=== PATIENT | female | born 1985 | race Two or more races ===

== ENCOUNTER 2018-10-19 14:34 | Emergency (ER) | payer OTHER ==
[2018-10-19 14:53] VITALS: BP 119/88
--- NOTE | 2018-10-19 16:00 | ED Physician Documentation ---
PD HPI SKIN - Stated complaint Stated Complaint: RASH - Chief complaint Chief Complaint: Wound - History obtained from History obtained from: Patient - History of Present Illness Timing - onset: How many days ago (3 days itchy rash, started RUE, now body wide. Feels ok, no ST, no myalgias, no fevers) Review of Systems Constitutional: reports: Reviewed and negative Nose: reports: Reviewed and negative Cardiac: reports: Reviewed and negative Respiratory: reports: Reviewed and negative PD PAST MEDICAL HISTORY - Past Medical History Cardiovascular: None Respiratory: None Endocrine/Autoimmune: None GI: None [employer]: None : None HEENT: None Musculoskeletal: None Derm: None - Past Surgical History Past Surgical History: No - Present Medications Home Medications: Ambulatory Orders Medication Instructions Recorded Confirmed Gabapentin [Neurontin] 100 mg PO PRN 08/19/13 08/19/13 hydrOXYzine pamoate [Hydroxyzine 1 - 2 tab PO Q6H PRN #20 capsule 10/19/18 Pamoate] predniSONE [Deltasone] 60 mg PO DAILY 5 Days tablet 10/19/18 - Allergies Allergies/Adverse Reactions: Allergies Allergy/AdvReac Type Severity Reaction Status Date / Time No Known Drug Allergies Allergy Verified 08/19/13 20:34 - Social History Does the pt smoke?: Yes Smoking Status: Current every day smoker Does the pt drink ETOH?: No Does the pt have substance abuse?: No - Immunizations Immunizations are current?: Yes - POLST Patient has POLST: No PD ED PE NORMAL - Vitals Vital signs reviewed: Yes - General General: Alert and oriented X 3, No acute distress - HEENT HEENT: PERRL, EOMI, Pharynx benign - Cardiac Cardiac: RRR, No murmur - Respiratory Respiratory: No respiratory distress, Clear bilaterally - Abdomen Abdomen: Normal bowel sounds, Soft, Non tender - Derm Derm: Other (hives, moderate, nettie forearms, neck, not face, or palms/soles.) - Neuro Neuro: Alert and oriented X 3, Normal speech Results - Vitals Vitals: Vital Signs - 24 hr 10/19/18 14:44 Temperature 36.0 C L Heart Rate 81 Respiratory 18 Rate Blood Pressure 119/88 H O2 Saturation 100 Oxygen O2 Source Room air Departure - Departure Disposition: 01 Home, Self Care Clinical Impression: Urticaria Condition: Good Record reviewed to determine appropriate education?: Yes Health Concerns: rash/hives Plan of Treatment: prednisone, hydroxyzine Care Goals: resolution Assessment: as above Instructions: ED Urticaria Prescriptions: hydrOXYzine pamoate [Hydroxyzine Pamoate] 1 - 2 tab PO Q6H PRN #20 capsule PRN Reason: Itching predniSONE [Deltasone] 60 mg PO DAILY 5 Days tablet Comments: If symptoms are persistent or recurrent follow-up with your primary care physician, consider referral for allergy testing.
== END 2018-10-19 16:03 | disposition home or self-care (01) ==
LOC: ED 14:34
DX: L50.9 Urticaria, unspecified (principal); F17.200 Nicotine dependence, unspecified, uncomplicated
CPT/HCPCS: 99282; 99283